=== PATIENT | female | born 1965 | race Caucasian/White ===

== ENCOUNTER 2018-04-15 20:17 | Emergency (ER) | payer OTHER ==
[~2018-04-15] VITALS: Ht 154.9 cm; Wt 70.0 kg
[~2018-04-15 20:17] MED LIST: ALBU8.5H8 INH; CEPH-443 PO; GUAI-227 PO; IBUP800T48 PO
[2018-04-15 20:29] VITALS: BP 133/66; PULSE 83; RESP 20; Ht 154.9 cm; Wt 70.0 kg
[2018-04-15] MEDS ORDERED: AZIT250T PO (22:33)
[2018-04-15] MEDS ORDERED: PROM5SYR2 PO (22:33)
--- NOTE | 2018-04-15 22:37 | ERD ---
ER Documentation Chief Complaint Chief Complaint FEVER WITH BURRIS/SORE THROAT/COUGH/CONGESTION X 3 DAYS HPI 53-year-old female presents with 3 days of cough and sore throat and fever and nasal congestion. Is been taking anti-inflammatories at home. No hemoptysis or unplanned weight loss. No nausea or vomiting. ROS All systems reviewed and are negative except as per history of present illness. Medications Home Meds Active Scripts Promethazine HCl/Codeine (Prometh-Codein 6.25-10 mg/5 ml) 5 Ml Syrup, 5 ML PO Q6, #120 ML Prov:TIARA BARKLEY PA-C 04/15/18 Azithromycin* (Zithromax*) 250 Mg Tablet, 250 MG PO .ZPACK DIRECTED, #6 TAB TAKE 500 MG (2 TABS) THE FIRST DAY THEN 250 MG (1 TAB) DAYS 2-5 Prov:TIARA BARKLEY PA-C 04/15/18 Albuterol Sulfate* (Proair HFA*) 8.5 Gm Hfa.aer.ad, 2 PUFF INH Q4H PRN for WHEEZING AND SOB, #1 INHALER Prov:NAT PERDUEAR F 03/20/18 Guaifenesin-Dextromethorphan* (Robafen* DM) 100MG/10MG/5ML Liquid, 5 ML PO Q6H PRN for COUGH, #60 ML Prov:WALDO PERDUE F 03/20/18 Ibuprofen* (Motrin*) 800 Mg Tab, 800 MG PO Q6H PRN for PAIN AND OR ELEVATED TEMP, #30 TAB Prov:WALDO PERDUE F 03/20/18 Cephalexin* (Keflex*) 500 Mg Capsule, 500 MG PO TID for 7 Days, CAP Prov:AWILDAILANAT DALYAR F 03/20/18 Allergies Allergies: Coded Allergies: No Known Allergy (Unverified , 03/19/18) PMhx/Soc Hx Cardiac Disorders: Yes (DYSLIPIDEMIA) Hx Miscellaneous Medical Probl: Yes (dm) Hx Alcohol Use: No Hx Substance Use: No Hx Tobacco Use: No Smoking Status: Never smoker FmHx Family History: No diabetes Physical Exam Vitals Vital Signs Date Temp Pulse Resp B/P (MAP) Pulse Ox O2 O2 Flow FiO2 Time Delivery Rate 04/15/18 98.6 83 20 133/66 98 20:29 (88) Physical Exam INITIAL VITAL SIGNS: Reviewed by me GENERAL: Awake, alert and oriented x 4, well appearing, nontoxic, speaking in full sentences. No acute distress HEAD: Atraumatic NECK: Supple. No masses. Full range of motion. No meningismus. No midline tenderness. EYES: EOMI. PERRL. EAR: No tenderness over the mastoids bilaterally. No exudates in the canals. TMs nonerythematous. NOSE: Normal nose. THROAT: No tonilar erythema or edema. No exudates. Uvula midline. No kissing tonsils. RESPIRATORY: Clear to auscultation bilaterally. Symmetric chest wall rise. No wheezing or rales. No accessory muscle use. CV: Regular rate and rhythm. No murmurs, rubs, or gallops. ABDOMEN: Soft, non-distended. Nontender. Negative Stanton. Negative McBurneys point tenderness. No CVA tenderness bilaterally. No guarding. No rebound. : Deffered. EXTREMITIES: No clubbing or cyanosis. No edema. Moving all extremities normally. BACK: No midline tenderness to palpation. No step-offs. SKIN: Warm and dry. No rash or petechiae. NEUROLOGIC: Normal mental status and speech. Face is symmetric. Moves all extremities equally. Motor and sensory distally intact. Normal coordination. Ambulates with a strong steady gait. Procedures/MDM She presents with cough and congestion the past 3 days. She is afebrile but does look slightly uncomfortable. Decided to give her a prescription for azithromycin and promethazine with codeine cough syrup. Patient counseled regarding my diagnostic impression and care plan. Prior to discharge all questions answered. Pt agrees with treatment plan and understands strict return precautions. Pt is instructed to follow up with primary care provider within 24- 48 hours. Precautionary instructions provided including instructions to return to the ER if not improving or for any worsening or changing symptoms or concerns. Departure Diagnosis: Primary Impression: Bronchitis Condition: Stable Patient Instructions: Bronchitis, Antiobiotic Treatment (Adult) Additional Instructions: Llame al doctor MAANA y tomer ketty ROYCE PARA DENTRO DE 1-2 DALE.Dgale a la secretaria que nosotros le instruimos hacer esta royce.Avise o llame si wan condicin se empeora antes de la royce. Regresa aqui si peor o no mejor. TIARA BARKLEY PA-C Apr 15, 2018 22:37
== END 2018-04-15 22:48 | disposition home or self-care (01) ==
LOC: FTE 20:17
DX: J40 Bronchitis, not specified as acute or chronic (principal); E11.9 Type 2 diabetes mellitus without complications
CPT/HCPCS: 99283